=== PATIENT | male | born 2000 | race African-American/Black ===

== ENCOUNTER 2018-12-09 13:20 | Emergency (ER) | payer MEDICAID ==
[~2018-12-09] VITALS: Ht 185.4 cm; Wt 75.0 kg
[2018-12-09 13:31] VITALS: BP 128/86
[2018-12-09] MEDS ORDERED: DIPH,PERTUSS(ACELL),TET VAC/PF 0.5 ML IM-VACC ONE ×2 (13:40→14:00)
[2018-12-09] MEDS ORDERED: LIDOCAINE-MPF 1%, 5ML ONE (13:40)
[2018-12-09] MEDS ORDERED: LIDOCAINE 1%, 10ML INFIL ONE (14:00)
[2018-12-09] MEDS ORDERED: BACITRACIN ZINC OINT 500U/GM, 0.9 GM ONE (15:26)
== END 2018-12-09 15:31 | disposition home or self-care (01) ==
LOC: ED 15:14
DX: S61.411A Laceration without foreign body of right hand, initial encounter (principal); J45.909 Unspecified asthma, uncomplicated; W26.0XXA Contact with knife, initial encounter; Y93.G3 Activity, cooking and baking; Y92.098 Other place in other non-institutional residence as the place of occurrence of the external cause; Y99.8 Other external cause status
CPT/HCPCS: 12041; 90471; 90715; 99284; J3490